=== PATIENT | female | born 1995 | race Caucasian/White ===

== ENCOUNTER 2018-04-15 11:38 | Emergency (ER) | payer SELFPAY ==
[~2018-04-15] VITALS: Ht 162.6 cm; Wt 50.2 kg
[2018-04-15 11:41] VITALS: BP 134/64; PULSE 67; RESP 20; Ht 162.6 cm; Wt 50.2 kg
[2018-04-15] MEDS ORDERED: IBUP-1542 PO (14:00)
--- NOTE | 2018-04-15 14:07 | ERD ---
ER Documentation Chief Complaint Chief Complaint Complains of abdominal pain x 3 days HPI 23-year-old female presenting with pain to left middle finger. Patient slammed her finger in a door earlier today. Patient is right-hand dominant. She has not taken medications for any pain. She is currently taking amoxicillin for another infection however no pain medications. Denies any numbness or tingling and has movement of the digit with mild pain. Denies other medical problems. NKDA. Surgical history on her right foot. Social history denies ROS All systems reviewed and are negative except as per history of present illness. Medications Home Meds Active Scripts Ibuprofen* (Motrin*) 600 Mg Tab, 600 MG PO Q6, #30 TAB Prov:RICHARD ROSARIO PA-C 04/15/18 Allergies Allergies: Coded Allergies: No Known Allergy (Unverified , 04/15/18) FmHx Family History: No diabetes, No coronary disease, No other Physical Exam Vitals Vital Signs Date Temp Pulse Resp B/P (MAP) Pulse Ox O2 O2 Flow FiO2 Time Delivery Rate 04/15/18 98.9 67 20 134/64 100 11:41 (87) Physical Exam GENERAL: The patient is well-appearing, well-nourished, in no acute distress CHEST: Clear to auscultation bilaterally. There are no rales, wheezes or rhonchi. HEART: Regular rate and rhythm. No murmurs, clicks, rubs or gallops. EXTREMITIES: Tender to palpation to the left PIP joint of the third digit. Patient is able to isolate at the DIP and PIP joint. Strength 5 out of 5 with flexion and extension. NEUROLOGIC: Sensation grossly intact. SKIN: There is no apparent rash or petechiae. The skin is warm and dry. Procedures/MDM DIAGNOSTIC IMAGING REPORT Patient: DINO ELIZABETH : 1995 Age: 23 Sex: F MR #: [id number] DOS: 04/15/18 1259 Ordering MD: KAYCEE ROSARIO PA-C Location: [facility] Room/Bed: PROCEDURE: XR Left middle finger CLINICAL INDICATION: Pain TECHNIQUE: AP, oblique, and lateral radiographs were submitted. COMPARISON: None FINDINGS: Osseous structures: appear well mineralized and intact with no fracture or destructive process identified. Joint spaces: are well maintained, with no significant spurring, erosion or joint effusion evident. Soft tissues: There is mild soft tissue prominence lateral to the proximal interphalangeal joint. IMPRESSION: 1. Mild soft tissue prominence lateral to the proximal interphalangeal joint of the left middle finger. 2. Otherwise, unremarkable left middle finger series. ER Course: Splint applied to left third digit in position of function. Patient is neuro intact pre-and post splint application. MDM: 23-year-old female presenting with pain to left third PIP joint. I have low suspicion for acute fracture dislocation. I have low suspicion for tendon or ligament rupture. Patient likely sustained a sprain. Patient is discharged with supportive medications and splint. She is told to follow-up with primary care. All questions answered at discharge. Departure Diagnosis: Primary Impression: Finger injury Condition: Stable Patient Instructions: Sprain Finger Referrals: [facility] YOU HAVE RECEIVED A MEDICAL SCREENING EXAM AND THE RESULTS INDICATE THAT YOU DO NOT HAVE A CONDITION THAT REQUIRES URGENT TREATMENT IN THE EMERGENCY DEPARTMENT. FURTHER EVALUATION AND TREATMENT OF YOUR CONDITION CAN WAIT UNTIL YOU ARE SEEN IN YOUR DOCTORS OFFICE WITHIN THE NEXT 1-2 DAYS. IT IS YOUR RESPONSIBILITY TO MAKE AN APPOINTMENT FOR FOLOW-UP CARE. IF YOU HAVE A PRIMARY DOCTOR --you should call your primary doctor and schedule an appointment IF YOU DO NOT HAVE A PRIMARY DOCTOR YOU CAN CALL OUR PHYSICIAN REFERRAL HOTLINE AT IF YOU CAN NOT AFFORD TO SEE A PHYSICIAN YOU CAN CHOSE FROM THE FOLLOWING [facility] [address] [facility] [facility] [address] [facility] [facility] [address] [facility]. [facility] [address] [facility] [facility] [address] [facility]. [facility]. [address] Additional Instructions: FOLLOW UP WITH YOUR PRIMARY CARE PHYSICIAN TOMORROW.Return to this facility if you are not improving as expected. RICHARD ROSARIO PA-C Apr 15, 2018 14:07
== END 2018-04-15 14:09 | disposition home or self-care (01) ==
LOC: FTE 11:38
DX: S69.92XA Unspecified injury of left wrist, hand and finger(s), initial encounter (principal); W23.0XXA Caught, crushed, jammed, or pinched between moving objects, initial encounter; Y92.9 Unspecified place or not applicable
CPT/HCPCS: 73140